=== PATIENT | male | born 1960 | race Caucasian/White ===

== ENCOUNTER 2018-07-08 13:08 | Day surgery (SDC) | payer OTHER ==
[~2018-07-08] VITALS: Ht 175.3 cm; Wt 104.5 kg
[~2018-07-08 13:08] MED LIST: ONDA4ODT MM; RXONDA4ODT MM
== END 2018-07-08 15:45 | disposition home or self-care (01) ==
LOC: ORSCSDS 13:08
PROVIDERS: Surgery
PROC: 0DBK8ZX Excision of Ascending Colon, Via Natural or Artificial Opening Endoscopic, Diagnostic (ICD-10-PCS; principal; 2018-07-08 14:45)
DX: Z12.11 Encounter for screening for malignant neoplasm of colon (principal); D12.2 Benign neoplasm of ascending colon; E66.01 Morbid (severe) obesity due to excess calories; Z68.36 Body mass index [BMI] 36.0-36.9, adult
CPT/HCPCS: 88305; J2704; J7120

== ENCOUNTER 2023-12-29 08:14 | Day surgery (SDC) | payer OTHER ==
[~2023-12-29] VITALS: Ht 177.8 cm; Wt 106.3 kg
[2023-12-29] MEDS ORDERED: Lactated Ringer's 1,000 ML IV ONE ×2 (09:00→09:27)
[2023-12-29] MEDS ORDERED: propofoL 50 ML IV ONE (09:27)
[2023-12-29 10:46] VITALS: BP 118/78
== END 2023-12-29 10:40 | disposition home or self-care (01) ==
LOC: ORSCSDS 08:14
PROVIDERS: Surgery
PROC: 0DJD8ZZ Inspection of Lower Intestinal Tract, Via Natural or Artificial Opening Endoscopic (ICD-10-PCS; principal; 2023-12-29 09:45)
DX: Z12.11 Encounter for screening for malignant neoplasm of colon (principal); Z86.0101 Personal history of adenomatous and serrated colon polyps; K21.9 Gastro-esophageal reflux disease without esophagitis; Z85.46 Personal history of malignant neoplasm of prostate
CPT/HCPCS: J2704; J7120

== ENCOUNTER 2024-01-06 06:29 | Day surgery (SDC) | payer OTHER ==
[~2024-01-06] VITALS: Ht 174 cm; Wt 106.6 kg
[~2024-01-06 06:29] MED LIST changes: +CeFAZolin Sodium 2,000 MG in NS 100 ML IV SCH; +Lactated Ringer's 1,000 ML IV SCH
[2024-01-06 06:49] VITALS: BP 136/85
[2024-01-06] MEDS ORDERED: FentaNYL Citrate 50 MCG/ML 2 ML Injection ONE (07:01)
[2024-01-06] MEDS ORDERED: propofoL 20 ML IV ONE (07:01)
[2024-01-06] MEDS ORDERED: Lidocaine HCl 2% 20 ML MDV ONE (07:02)
[2024-01-06] MEDS ORDERED: Ondansetron HCl 2 MG / ML 2ML Vial ONE (07:02)
[2024-01-06] MEDS ORDERED: Dexamethasone Sod Phos 10 MG/ML 1ML VIAL ONE (07:02)
[2024-01-06] MEDS ORDERED: Bupivacaine 0.5% HCl 5 MG/ML 30MLVIAL ONE (07:06)
[2024-01-06] MEDS ORDERED: Midazolam HCl 1MG / ML 2ML Vial IV ONE (07:15)
[2024-01-06] MEDS ORDERED: Rocuronium Bromide 10 MG/ML 5ML Injection IV ONE ×2 (07:18→07:23)
[2024-01-06] MEDS ORDERED: Ketorolac Tromethamine 30mg Vial ONE (08:05)
[2024-01-06] MEDS ORDERED: Sugammadex Sodium 200 MG/2ML SDV (100 MG/ML) ONE (08:05)
[2024-01-06 08:55] VITALS: BP 127/82
[2024-01-06 09:00] VITALS: BP 122/76
[2024-01-06 09:05] VITALS: BP 119/79
[2024-01-06] MEDS ORDERED: HYDROcodone 5-APAP 325 TAB PO PRN (09:05)
[2024-01-06 09:15] VITALS: BP 113/82
--- NOTE | 2024-01-06 09:18 | NUR ---
REPORT RECEIVED FROM CINTIA BARRIOS. VSS. PT ON RA. PT ABLE TO REPOSITION SELF IN BED. PT REQUESTING PO FLUIDS AND TOLERATING THEM WELL. PT DENIES PAIN, NAUSEA OR OTHER DISCOMFORTS. PT HAS GAUZE AND TEGADERM TO ABDOMEN THAT IS C/D/I WITHOUT DRAINAGE, REDNESS, OR SWELLING.
[2024-01-06 09:30] VITALS: BP 114/79
--- NOTE | 2024-01-06 09:41 | NUR ---
Patient up to Ambulate independently. Gait steady. VSS AND CONSISTENT WITH PT BASELINE. PT HAS NO COMPLAINTS AND VERBALIZES READINESS TO GO HOME. Discharge instructions reviewed with patient. Patient verbalizes understanding. Copy given to patient to take home. Dressing to procedure site clean, dry, intact with no visible drainage, swelling, erythema or bruising noted. Patient States Post-Procedure ride home has been arranged. Discharged via wheelchair to private car for ride home. PT BELONGINGS RETURNED TO PT.
== END 2024-01-06 09:42 | disposition home or self-care (01) ==
LOC: ORSCMMR 06:29 → ORD 07:30 → ORSCMMR 07:30
PROVIDERS: Surgery
PROC: 0WUF0JZ Supplement Abdominal Wall with Synthetic Substitute, Open Approach (ICD-10-PCS; principal; 2024-01-06 07:30)
DX: K42.9 Umbilical hernia without obstruction or gangrene (principal); K21.9 Gastro-esophageal reflux disease without esophagitis; E66.9 Obesity, unspecified; Z68.35 Body mass index [BMI] 35.0-35.9, adult
CPT/HCPCS: C1781; J0690; J1100; J1885; J2250; J2405; J2704; J3010; J7120